=== PATIENT | female | born 1955 | race Caucasian/White ===

== ENCOUNTER → 2021-03-13 | Outpatient (CLI) | payer OTHER ==
--- NOTE | 2021-03-13 12:27 | 2DMMODE ---
[place] [address] 2 D/M-MODE ECHOCARDIOGRAM Name: ARIEL BLACKMAN Room: [facility]#: [id number] Admission: 03/13/21 Attend Phys: BIRD Morales Discharge: Date of : 55 Date of Service: 03/13/21 1227 Report #: [id number] THIS REPORT FOR: cc: Megha Hill Tami FNP Holkins, John M. MD [facility] ~ APPROVED REPORT Study performed: 03/13/2021 07:51:04 EXAM: Comprehensive 2D, Doppler, and color-flow Echocardiogram Patient Location: Out-Patient BSA: 1.91 HR: 75 bpm BP: 132/78 mmHg Other Information Study Quality: Good Indications Murmur Dyspnea 2D Dimensions IVSd: 8.50 (7-11mm) LVOT Diam: 20.11 (18-24mm) LVDd: 44.71 mm PWd: 10.16 (7-11mm) Ascending Ao: 29.43 (22-36mm) LVDs: 22.47 (25-40mm) Aortic Root: 24.46 mm Volumes Left Atrial Volume (Systole) LA ESV Index: 10.30 mL/m2 Aortic Valve AoV Peak Joey.: 2.35 m/s AO Peak Gr.: 22.03 mmHg LVOT Max P.04 mmHg AO Mean Gr.: 12.26 mmHg LVOT Mean P.54 mmHg LVOT Max V: 1.12 m/s AO V2 VTI: 47.78 cm LVOT Mean V: 0.74 m/s CÉSAR (VTI): 1.70 cm2 LVOT V1 VTI: 25.55 [place] [address] 2 D/M-MODE ECHOCARDIOGRAM Name: MANDOARIEL WALKER Room: [facility]#: [id number] Admission: 03/13/21 Attend Phys: BIRD Morales Discharge: Date of : 55 Date of Service: 03/13/21 1227 Report #: [id number] E/A Ratio: 0.96 MV Decel. Time: 229.99 ms MV E Max Joey.: 0.79 m/s MV PHT: 66.70 ms MVA (PHT): 3.30 cm2 TDI E/Lateral E': 7.18 E/Medial E': 8.78 Medial E' Joey.: 0.09 m/s Lateral E' Joey.: 0.11 m/s Pulmonary Valve PV Peak Joey.: 1.03 m/s PV Peak Gr.: 4.27 mmHg Left Ventricle The left ventricle is normal size. There is normal LV segmental wall motion. There is normal left ventricular wall thickness. Left ventricular systolic function is normal. The left ventricular ejection fraction is within the normal range. LVEF is 60-65%. Grade I - abnormal relaxation pattern. Right Ventricle The right ventricle is normal size. The right ventricular systolic function is normal. Atria The left atrium size is normal. The right atrium size is normal. Aortic Valve Mild aortic valve sclerosis. No aortic regurgitation is present. Mild aortic stenosis. Mitral Valve The mitral valve is normal in structure. There is no mitral valve regurgitation noted. No evidence of mitral valve stenosis. Tricuspid Valve The tricuspid valve is normal in structure. There is no tricuspid valve regurgitation noted. Pulmonic Valve The pulmonary valve is normal in structure. There is no pulmonic valvular regurgitation[place] [address] 2 D/M-MODE ECHOCARDIOGRAM Name: ARIEL BLACKMAN Room: [facility]#: [id number] Admission: 03/13/21 Attend Phys: BIRD Morales Discharge: Date of : 55 Date of Service: 03/13/21 1227 Report #: [id number] The aortic root is normal in size. IVC is normal in size and collapses >50% with inspiration. Pericardium There is no pericardial effusion. <Conclusion> The left ventricle is normal size. There is normal left ventricular wall thickness. Left ventricular systolic function is normal. The left ventricular ejection fraction is within the normal range. LVEF is 60-65%. Grade I - abnormal relaxation pattern. The right ventricle is normal size. The left atrium size is normal. Mild aortic valve sclerosis. No aortic regurgitation is present. Mild aortic stenosis. The mitral valve is normal in structure. The tricuspid valve is normal in structure. IVC is normal in size and collapses >50% with inspiration. There is no pericardial effusion. There is normal LV segmental wall motion. <ELECTRONICALLY SIGNED> By: Adrian Polo MD, FACC 03/13/21 1227 1227 1227 Adrian Polo MD, FACC /INF
== END ==
LOC: M.CRD 07:48
PROVIDERS: ATTEND Nurse Practitioner Family
DX: I35.1 Nonrheumatic aortic (valve) insufficiency (principal); E78.2 Mixed hyperlipidemia